=== PATIENT | male | born 1970 | race Caucasian/White ===

== ENCOUNTER → 2020-03-21 15:14 | Outpatient (CLI) | payer OTHER, SELFPAY ==
[2020-03-21 15:08] VITALS: BMI 35.2
--- NOTE | 2020-03-21 15:14 | RAD_ITS ---
STUDY: X-RAY - LEFT KNEE REASON FOR EXAM: Male, 49 years old. CHRONIC PAIN TECHNIQUE: 6 view(s) of the knee. COMPARISON: None. FINDINGS: Normal visualized distal femur. Normal visualized proximal tibia and fibula. Normal proximal tibiofibular articulation. Normal medial femorotibial compartment. Normal lateral femorotibial compartment. Normal patellofemoral articulation. The soft tissue structures are unremarkable. RAD/Knee 4 or More Views IMPRESSION: Normal x-ray examination of the knee. Electronically Signed: Delonte Lopez, at 16:03 EDT , Service support ,
== END ==
PROVIDERS: PCP Family Medicine; Referring Provider Orthopaedic Surgery; Visit Provider Orthopaedic Surgery
DX: M25.562 Pain in left knee (principal)
CPT/HCPCS: 73564

== ENCOUNTER → 2020-04-25 16:44 | Outpatient (CLI) | payer OTHER, SELFPAY ==
[2020-04-25 12:41] VITALS: BMI 37.9
[2020-04-25 17:19] LABS: Absolute Lymphocyte Count 1.65 X10^3/uL (0.83-4.51); Absolute Neutrophil Count 4.2 X10^3/uL (2.0-7.7); Basophil# 0.05 X10^3/uL; Basophil% 0.8 % (0-1); Eosinophil# 0.13 X10^3/uL; Hematocrit 42.5 % (40-54); Hemoglobin 14.1 g/dL (13.0-16.5); Lymphocyte # 1.65 X10^3/ul (4.0); Lymphocyte % 24.8 % (19-41); Mean Corp Hgb Conc 33.2 g/dL (32-36); Mean Corpuscular Hgb 29.9 pg (27.0-32.0); Mean Platelet Vol. 9.2 fl (6.2-12.0); Monocyte# 0.61 X10^3/uL; Monocyte% 9.2 % (0-10); NRBC Flagged by Analyzer 0 % (0-5); Neutrophil # 4.19 X10^3/uL (2.7-7.7); Neutrophil % 62.9 % (47-70); Platelet Count 330 K/mm3 (150-450); RBC Distribution Width CV 12.2 % (11.6-14.6); RBC Distribution Width SD 40.5 fl (35.1-43.9); Red Blood Count 4.72 M/mm3 (4.6-6.2); White Blood Count 6.7 K/mm3 (4.4-11.0)
[2020-04-25 17:52] LABS: AST(SGOT) 17 U/L (15-37); Alanine Aminotransfer ALT/SGPT 34 U/L (16-61); Alkaline Phosphatase 129 U/L (45-117); Anion Gap 3 (5-15); BUN 9 mg/dL (7-18); BUN/Creat Ratio 9.4 RATIO (10-20); Bilirubin, Direct 0.19 mg/dL (0.00-0.30); Calcium,Total 9.1 mg/dL (8.5-10.1); Chloride 109 mmol/L (98-107); Cholesterol 183 mg/dL (200); Creatinine, Serum 0.96 mg/dL (0.70-1.30); EST Glomerular Filtration Rate 89 mL/min (>60); Est Glom Filt Rate - Afr Amer 108 mL/min (>60); Globulin 3.4 g/dL (2.2-4.2); Glucose 90 mg/dL (74-106); High Density Lipoprotein 44 mg/dL; Potassium 3.9 mmol/L (3.5-5.1); Protein, Total 7.4 g/dL (6.4-8.2); Sodium Level 140 mmol/L (136-145); Triglycerides 192 mg/dL; Very Low Density Lipoprotein 38 mg/dL (5-40)
== END ==
PROVIDERS: Referring Provider Internal Medicine Cardiovascular Disease; Visit Provider Internal Medicine Cardiovascular Disease
DX: R07.9 Chest pain, unspecified (principal)
CPT/HCPCS: 36415; 80048; 80061; 80076; 85025

== ENCOUNTER → 2020-05-08 13:04 | Outpatient (CLI) | payer OTHER, SELFPAY ==
[2020-04-25 12:41] VITALS: BMI 37.9
--- NOTE | 2020-05-08 13:05 | STEWCON_ITS ---
Reason For Study: CHEST PAIN Stress Results Protocol: Dobtuamine Stress Echo Maximum Predicted HR: 173 bpm Target HR: 147 bpm % Maximum Predicted HR: 87 % DurationHeart Rate Stage (mm:ss) (bpm) BP Dose Comment BASELINE 74 124/80 6 ML DILUTED DEFINITY USED DSE- 10 MCG 3:17 76 131/6810.00NO SX DSE- 20 MCG 3:46 100 161/8120.00NO SX DSE- 30 MCG 3:51 144 132/7030.00ATROPINE 0.25 MG IVP GIVEN @ 1402 DSE- 40 MCG 2:31 150 154/7040.00NO SX RECOVERY 94 124/76 DENIES COMPLAINT Stress Duration: 13:25 mm:ss Maximum Stress HR: 150 bpm Baseline Echocardiogram Findings Stress Echo Wall motion Data Resting WM Intermediate WM Stress WM Interpretation Summary Dobutamine stress echocardiogram. Resting EKG demonstrates normal sinus rhythm with a rate of 74 bpm resting blood pressures 124/80 mmHg. Dobutamine was infused starting at 10 mcg/kg/min increasing in 3-minute time aliquots to a peak of 40 mcg/kg/min. The maximum heart rate attained was 150 bpm which was 87% of maximum predicted heart rate. At rest there were no ST or T wave changes noted to suggest ischemia at peak infusion nonspecific ST-T wave changes were noted. No symptoms were noted. The patient required 0.25 mg of atropine to be given to attain target heart rate. The peak blood pressure was 161/81 mmHg. Stress echocardiogram. Resting echocardiographic images obtained without Definity demonstrated an ejection fraction of approximately 60%. During the low-dose Definity there was improvement in left ventricular ejection fraction and contraction of all bell. There was thickening of all bell with peaking of ejection fraction at 75%. No wall motion abnormalities were noted to suggest ischemia. Conclusion: Dobutamine stress echocardiogram with Definity enhancement demonstrating no evidence of ischemia. Preserved ejection fraction at rest and peak exercise. No significant arrhythmias noted. Ordering Physician: William Win Referring Physician: William Win Performed By: Aby Benavides, RDCS, RVT
== END ==
PROVIDERS: Referring Provider Internal Medicine Cardiovascular Disease; Visit Provider Internal Medicine Cardiovascular Disease
DX: R07.9 Chest pain, unspecified (principal)
CPT/HCPCS: 93017; 93350; J7040; Q9957; A4216; C8928

== ENCOUNTER 2020-05-14 17:29 | Emergency (ER) | payer OTHER, SELFPAY ==
[2020-05-14 16:19] VITALS: BMI 37.9
[2020-05-14 17:30] VITALS: BP 131/98; PULSE 76; RESP 18; TEMP 36; O2SAT 96; BMI 27.6
--- NOTE | 2020-05-14 18:49 | ED.DCSUM_ITS ---
History of Present Illness Chief Complaint: Foreign Body Informant: Patient, Significant Other Narrative: The patient states that he has a history of esophageal foreign bodies that have required dilatation in the past. He tells me that today he was prescribed Augmentin for a sinus infection. He broke the pill in half and went to swallowing and felt like it got stuck in his throat. He was unable to swallow his saliva and felt like he was choking. He states he has felt it move and is now handling his secretions and able to drink Coke. It has been years since his last scope. - Past Medical History (1) Esophageal foreign body Status: Chronic Past Medical History - Allergies and Home Meds Allergies/Adverse Reactions: Allergies No Known Allergies Allergy (Verified 05/14/20 17:32) Primary Care Physician: Care Physician,No Primary [Primary Care Provider] - Past Medical History: - - Esophageal foreign bodies Surgical History: - - Multiple EGD Lives: With Family Smoking Status: Never smoker Drugs: None Review of Systems General: Denies: Chills, Fever, Sweats Eyes: Denies: Visual changes - bilaterally, Diplopia ENT: Reports: - - See history of present illness. Denies: Rhinorrhea, Sore throat Cardiovascular: Denies: Chest pain, Palpitations Respiratory: Denies: Dyspnea, Cough, Dyspnea on exertion Gastrointestinal: Denies: Abdominal pain, Nausea, Vomiting, Diarrhea, Melena, Hematochezia Genitourinary: Denies: Dysuria, Hematuria, Frequency Musculoskeletal: Denies: Back pain, Extremity Pain Skin: Denies: Rash, Wounds Neurological: Denies: Headache, Weakness, Numbness Physical Exam Vital Signs/Narrative: Vital Signs Temp Pulse Resp BP Pulse Ox 05/14/20 17:30 96.8 F L 76 18 131/98 H 96 Inital Vital Signs reviewed: Yes General: Well nourished, Well developed, No Acute Distress Head: Normocephalic, Atraumatic Eyes: Perrl, EOMI ENT: Moist mucous membranes, No rhinorrhea, - - Patient is sitting up handling his secretions. He is able to drink a Coke without difficulty. Neck: Supple, Nontender Cardiovascular: Regular rate, Regular rhythm, No murmurs Respiratory: No distress, CTA bilaterally, Chest nontender Abdomen: Soft, Nontender, Nondistended, Normal bowel sounds Back: Nontender, Normal Inspection Extremities: Nontender, No edema Skin: Normal color, No rash Neurological: Alert, Oriented x3, Cranial nerves II-XII grossly intact, Normal Strength, Normal Sensation Psychological: Normal affect, Normal Mood Diagnostic/Tx/Re-eval - Medical Decision Making Patient's foreign body has resolved. I am going to change him from Augmentin pills to liquid. Advised him that if it is been years since his last EGD he should schedule a follow-up appointment with gastroenterology. He was advised that we currently do not have one on staff I can refer him to Dr. Humphries locally or he could go to [place]. ED Disposition - Plan for ED Patient: Disposition: Home or Assisted Living Diagnosis: Esophageal foreign body, Sinusitis, acute Instructions: ED Foreign Body Esophageal Rslv Prescriptions: Amox/Clav 400mg/5ml Suspension [Augmentin Suspension 400mg/5ml] 11 ml PO Q12H 10 Days #220 ml Transmission Status: Pending to [id number] Referrals: Viral Humphries MD [NON-STAFF] - (Gastroenterology that is local)
== END 2020-05-14 19:16 | disposition home or self-care (01) ==
PROVIDERS: Emergency Provider Emergency Medicine
DX: T18.198A Other foreign object in esophagus causing other injury, initial encounter (principal); X58.XXXA Exposure to other specified factors, initial encounter; Y93.9 Activity, unspecified; Y92.9 Unspecified place or not applicable; Y99.9 Unspecified external cause status; J01.90 Acute sinusitis, unspecified; Z79.52 Long term (current) use of systemic steroids; Z79.899 Other long term (current) drug therapy
CPT/HCPCS: 99282

== ENCOUNTER → 2020-05-22 08:02 | Outpatient (CLI) | payer OTHER, SELFPAY ==
[2020-05-14 17:30] VITALS: BMI 27.6
--- NOTE | 2020-05-22 08:08 | RAD_ITS ---
STUDY: X-RAY - ESOPHAGUS (BARIUM SWALLOW) WITH FLUOROSCOPY REASON FOR EXAM: Male, 49 years old. FOOD GETS STUCK AT CARDIAC AREA. DYSPHAGIA WITH PILLS AROUND THE THYROID AREA TECHNIQUE: 29 view(s) of the esophagus were obtained following swallowing of barium. FLUOROSCOPY TIME (if supplied): (1:10) minutes/seconds COMPARISON: None. FINDINGS: There is no demonstrated esophageal foreign body. Focal narrowing at the origin of the esophagus. There appears to be a weblike stenosis. Normal gastroesophageal junction, without a demonstrated hiatal hernia. The patient ingested a 12 mm tablet of barium. The tablet At the origin of the esophagus. Normal visualized aortic arch and descending thoracic aorta. Normal visualized pulmonary parenchyma. Normal visualized osseous structures of the thorax. 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 Electronically Signed: Delonte Lopez, at 9:10 EDT , Service support ,
== END ==
PROVIDERS: Referring Provider Internal Medicine Gastroenterology; Visit Provider Internal Medicine Gastroenterology
DX: R13.10 Dysphagia, unspecified (principal)
CPT/HCPCS: 74221

== ENCOUNTER → 2020-05-24 16:49 | Outpatient (CLI) | payer OTHER, SELFPAY ==
[2020-05-14 17:30] VITALS: BMI 27.6
--- NOTE | 2020-05-24 16:50 | MRI_ITS ---
STUDY: MRI LEFT KNEE REASON FOR EXAM: Medial and posterior left knee pain, injury 4 months ago. TECHNIQUE: Standardized fat and water weighted pulse sequences were obtained in all 3 orthogonal planes. COMPARISON: Radiographs 03/21/2020. FINDINGS: Although there is image degradation secondary to patient motion, there is still significant diagnostically useful information available from this examination. There is a complex tear of the posterior horn/body of the medial meniscus (proton-density sagittal images 9-17; proton-density coronal images 15-17). Normal hyaline cartilage of the medial femorotibial compartment. There is a mild bone contusion of the anterior aspect of the medial plateau (T2 sagittal images 9-12). There is a mild sprain of the distal medial collateral ligament (T2 coronal image 16). Normal distal semimembranosus, gracilis and semitendinosus tendons. Normal lateral meniscus. Normal hyaline cartilage of the lateral femorotibial compartment. Normal lateral femoral condyle and tibial plateau. Normal proximal tibiofibular articulation. Normal lateral collateral (fibular) ligament. Normal popliteus tendon. Normal biceps femoris tendon. Normal anterior cruciate ligament (ACL). Normal posterior cruciate ligament (PCL). Normal congruent patellofemoral articulation. Normal hyaline cartilage of the patellofemoral compartment. Normal medial and lateral patellar retinaculum. Normal quadriceps tendon. Normal patellar tendon. Normal Hoffa''s fat pad. There is a [id number] sized joint effusion. There is a thin medial patellar plica. There is a lobulated ganglion cyst adjacent to the origin of the medial gastrocnemius (T2 axial series 9 image 8) measuring 2.1 cm in transverse dimension. There is mild superficial infrapatellar bursitis (T2 sagittal images 17, 18). There is mild edema in the subcutis adipose space. The otherwise visualized osseous structures are unremarkable. MRI/Lower Ext Joint Only (Routine) IMPRESSION: Medial meniscal tear. Mild sprain of the medial collateral ligament. Mild bone contusion of the medial tibial plateau. Joint effusion. Mild superficial infrapatellar bursitis. Ganglion cyst adjacent to the origin of the medial gastrocnemius. Electronically Signed: Shashank Gaspar MD at 7:49 EDT Tel , Service support ,
== END ==
PROVIDERS: Referring Provider Orthopaedic Surgery; Visit Provider Orthopaedic Surgery
DX: M25.362 Other instability, left knee (principal); M25.562 Pain in left knee
CPT/HCPCS: 73721

== ENCOUNTER → 2020-05-26 11:37 | Outpatient (CLI) ==
[2020-05-26 12:13] LABS: Absolute Lymphocyte Count 1.65 X10^3/uL (0.83-4.51); Absolute Neutrophil Count 3.2 X10^3/uL (2.0-7.7); Basophil# 0.05 X10^3/uL; Basophil% 0.9 % (0-1); Eosinophil# 0.17 X10^3/uL; Hematocrit 43.4 % (40-54); Hemoglobin 14.2 g/dL (13.0-16.5); Lymphocyte # 1.65 X10^3/ul (4.0); Lymphocyte % 29.3 % (19-41); Mean Corp Hgb Conc 32.7 g/dL (32-36); Mean Corpuscular Hgb 30.2 pg (27.0-32.0); Mean Corpuscular Volume 92.3 fL (80-94); Mean Platelet Vol. 9.3 fl (6.2-12.0); Monocyte# 0.52 X10^3/uL; Monocyte% 9.2 % (0-10); NRBC Flagged by Analyzer 0 % (0-5); Neutrophil # 3.21 X10^3/uL (2.7-7.7); Neutrophil % 57.1 % (47-70); Platelet Count 347 K/mm3 (150-450); RBC Distribution Width CV 12.3 % (11.6-14.6); RBC Distribution Width SD 42.1 fl (35.1-43.9); White Blood Count 5.6 K/mm3 (4.4-11.0)
[2020-05-31 10:03] LABS: Immunoglobulin E 522 IU/mL (6-495)
== END ==
PROVIDERS: Internal Medicine Pulmonary Disease
DX: J45.909 Unspecified asthma, uncomplicated (principal)
CPT/HCPCS: 82785; 85025

== ENCOUNTER → 2020-06-11 16:13 | Outpatient (CLI) | payer OTHER, SELFPAY ==
[2020-05-14 17:30] VITALS: BMI 27.6
== END ==
LOC: LABSPEC 16:13 → PSN 16:14
PROVIDERS: Referring Provider Internal Medicine Gastroenterology; Visit Provider Internal Medicine Gastroenterology
DX: Z11.59 Encounter for screening for other viral diseases (principal)
CPT/HCPCS: 87635; C9803; U0003

== ENCOUNTER 2021-07-09 18:11 | Outpatient (CLI) | payer OTHER, SELFPAY ==
[2021-07-09 18:22] VITALS: BP 120/75; PULSE 91; RESP 18; TEMP 36.7; O2SAT 94; BMI 39.1
[2021-07-09] MEDS: 0.9% Saline Lock 10 ML Syringe IV (18:22)
[2021-07-09 18:58] VITALS: BP 119/74; PULSE 80; RESP 16; TEMP 36.6; O2SAT 96
[2021-07-09 20:02] VITALS: BP 125/75; PULSE 80; RESP 18; TEMP 36.8; O2SAT 97
== END 2021-07-09 20:09 | disposition home or self-care (01) ==
LOC: MS3OUT 18:11 → MS3 18:12
PROVIDERS: Referring Provider Nurse Practitioner Adult Health; Visit Provider Nurse Practitioner Adult Health
DX: Z23 Encounter for immunization (principal); U07.1 COVID-19
CPT/HCPCS: J7050; M0245; Q0245; A4216

== ENCOUNTER → 2023-11-07 | Outpatient (CLI) | payer OTHER, SELFPAY ==
[2023-11-07 12:11] LABS: Absolute Lymphocyte Count 1.88 X10^3/uL (0.83-4.51); Absolute Neutrophil Count 2.4 X10^3/uL (2.0-7.7); Basophil# 0.08 X10^3/uL; Basophil% 1.6 % (0-1); Eosinophil# 0.14 X10^3/uL; Eosinophils% 2.8 % (0-5); Hemoglobin 14.2 g/dL (13.0-16.5); Lymphocyte # 1.88 X10^3/ul (0.83-4.51); Mean Corpuscular Hgb 29.6 pg (27.0-32.0); Mean Corpuscular Volume 89.8 fL (80-94); Mean Platelet Vol. 9.6 fl (6.2-12.0); Monocyte# 0.53 X10^3/uL; Monocyte% 10.4 % (0-10); NRBC Flagged by Analyzer 0 % (0-5); Neutrophil # 2.44 X10^3/uL (2.7-7.7); Platelet Count 338 K/mm3 (150-450); RBC Distribution Width CV 12.3 % (11.6-14.6); RBC Distribution Width SD 40.6 fl (35.1-43.9); Red Blood Count 4.79 M/mm3 (4.6-6.2); White Blood Count 5.1 K/mm3 (4.4-11.0)
[2023-11-07 12:27] LABS: AST(SGOT) 23 U/L (15-37); Alanine Aminotransfer ALT/SGPT 35 U/L (16-61); Albumin, Serum 3.5 g/dL (3.2-5.0); Alkaline Phosphatase 138 U/L (45-117); Anion Gap 2 (5-15); BUN 8 mg/dL (7-18); BUN/Creat Ratio 7.5 RATIO (10-20); Chloride 109 mmol/L (98-107); Cholesterol 186 mg/dL (200); Creatinine, Serum 1.06 mg/dL (0.70-1.30); EST Glomerular Filtration Rate 78 mL/min (>60); Est Glom Filt Rate - Afr Amer 95 mL/min (>60); Globulin 3.5 g/dL (2.2-4.2); Glucose 90 mg/dL (74-106); High Density Lipoprotein 50 mg/dL; Potassium 4.3 mmol/L (3.5-5.1); Sodium Level 139 mmol/L (136-145); Triglycerides 110 mg/dL; Very Low Density Lipoprotein 22 mg/dL (5-40)
[2023-11-07 12:35] LABS: Hemoglobin A1c 5.8 % (3.8-5.6)
== END | disposition home or self-care (01) ==
LOC: LAB 11:18
PROVIDERS: PCP Family Medicine; Referring Provider Family Medicine; Visit Provider Family Medicine
DX: Z00.00 Encounter for general adult medical examination without abnormal findings (principal); J45.909 Unspecified asthma, uncomplicated; K20.0 Eosinophilic esophagitis; Z83.3 Family history of diabetes mellitus
CPT/HCPCS: 36415; 80053; 80061; 83036; 85025